=== PATIENT | male | born 1980 | race Caucasian/White ===

== ENCOUNTER 2018-06-24 09:46 | Outpatient (REF) | payer BC, SELFPAY ==
[2018-06-24 22:10] LABS: Anion Gap 8.2 mmol/L (3-11); BUN 16 mg/dL (7-18); CO2 31.8 mmol/L (21.0-32.0); CREATININE 1.25 mg/dL (0.70-1.30); Calcium 9.6 mg/dL (8.5-10.1); Chloride 100 mmol/L (98-107); Cholesterol 250 mg/dL (50-200); Glucose 97 mg/dL (70-100); HDL Cholesterol 34 mg/dL (40-60); LDL CHOLESTEROL 181 mg/dL (<100); Potassium 3.3 mmol/L (3.5-5.1); Sodium 140 mmol/L (136-145); Triglyceride 207 mg/dL (30-150)
== END 2018-06-24 10:06 ==
LOC: NCHCN 09:46
PROVIDERS: PCP Internal Medicine; Visit Provider Internal Medicine
DX: Z00.00 Encounter for general adult medical examination without abnormal findings (principal); I10 Essential (primary) hypertension
CPT/HCPCS: 80048; 80061; 83721

== ENCOUNTER 2019-04-22 08:38 | Outpatient (REF) | payer BC, SELFPAY ==
[2019-04-22 21:10] LABS: Anion Gap 7.4 mmol/L (3-11); BUN 16 mg/dL (7-18); CO2 32.6 mmol/L (21.0-32.0); CREATININE 1.22 mg/dL (0.70-1.30); Calcium 9.3 mg/dL (8.5-10.1); Calculated LDL 151 mg/dL; Chloride 101 mmol/L (98-107); Cholesterol 225 mg/dL (<200); Glucose 102 mg/dL (74-106); HDL Cholesterol 31 mg/dL (40-60); Potassium 3.2 mmol/L (3.5-5.1); Sodium 141 mmol/L (136-145); Triglyceride 219 mg/dL (<150)
== END 2019-04-22 08:58 ==
LOC: NCHCN 08:38
PROVIDERS: PCP Internal Medicine; Visit Provider Internal Medicine
DX: I10 Essential (primary) hypertension (principal); Z13.220 Encounter for screening for lipoid disorders
CPT/HCPCS: 80048; 80061

== ENCOUNTER 2019-05-03 11:36 | Outpatient (REF) | payer BC, SELFPAY ==
[2019-05-03 21:21] LABS: Potassium 3.5 mmol/L (3.5-5.1)
== END 2019-05-03 11:56 ==
LOC: NCHCN 11:36
PROVIDERS: PCP Internal Medicine; Visit Provider Internal Medicine
DX: E87.6 Hypokalemia (principal)
CPT/HCPCS: 84132

== ENCOUNTER 2020-07-30 11:43 | Outpatient (REF) | payer BC, SELFPAY ==
[2020-07-30 21:52] LABS: ALT 102 U/L (16-63); AST 44 U/L (15-37); Albumin 4.3 g/dL (3.4-5.0); Alkaline Phosphatase 62 U/L (46-116); Anion Gap 6.4 mmol/L (3-11); BUN 14 mg/dL (7-18); Bilirubin, Total 0.6 mg/dL (0.2-1.0); CO2 32.6 mmol/L (21.0-32.0); CREATININE 1.3 mg/dL (0.70-1.30); Calcium 9.1 mg/dL (8.5-10.1); Chloride 105 mmol/L (98-107); Glucose 93 mg/dL (74-106); Potassium 3.5 mmol/L (3.5-5.1); Sodium 144 mmol/L (136-145); Total Protein 7.5 g/dL (6.4-8.2)
[2020-07-30 21:55] LABS: Hemoglobin A1C 5.7 % (<5.7)
== END 2020-07-30 11:44 | disposition home or self-care (01) ==
LOC: NCHCN 11:43
PROVIDERS: PCP Internal Medicine; Visit Provider Internal Medicine
DX: R73.01 Impaired fasting glucose (principal); I10 Essential (primary) hypertension; E78.5 Hyperlipidemia, unspecified
CPT/HCPCS: 80053; 83036

== ENCOUNTER 2021-01-31 07:46 | Outpatient (REF) | payer BC, SELFPAY ==
[2021-01-30 21:48] LABS: ALT 48 U/L (16-63); AST 22 U/L (15-37); Albumin 4.4 g/dL (3.4-5.0); Alkaline Phosphatase 66 U/L (46-116); Bilirubin, Direct 0.1 mg/dL (0.0-0.2); Bilirubin, Total 0.6 mg/dL (0.2-1.0); Total Protein 7.5 g/dL (6.4-8.2)
[2021-02-01 11:12] LABS: HIV-1/2 Ag & Ab Screen Negative (Negative)
[2021-02-01 11:23] LABS: Hepatitis C Ab w Rflx HCV PCR Negative (Negative)
== END 2021-01-31 07:47 | disposition home or self-care (01) ==
LOC: NCHCN 07:46
PROVIDERS: PCP Internal Medicine; Visit Provider Internal Medicine
DX: Z00.00 Encounter for general adult medical examination without abnormal findings (principal); E78.5 Hyperlipidemia, unspecified; Z11.59 Encounter for screening for other viral diseases; R79.89 Other specified abnormal findings of blood chemistry
CPT/HCPCS: 80076; 86803; 87389

== ENCOUNTER 2022-02-24 07:51 | Outpatient (REF) | payer BC, SELFPAY ==
[2022-02-24 15:15] LABS: Hemoglobin A1C 5.3 % (<5.7)
[2022-02-24 15:35] LABS: ALT 48 U/L (16-63); AST 25 U/L (15-37); Albumin 4.6 g/dL (3.4-5.0); Alkaline Phosphatase 59 U/L (46-116); Anion Gap 7.3 mmol/L (3-11); BUN 11 mg/dL (7-18); Bilirubin, Direct 0.1 mg/dL (0.0-0.2); Bilirubin, Total 0.9 mg/dL (0.2-1.0); CO2 32.7 mmol/L (21.0-32.0); CREATININE 1.1 mg/dL (0.70-1.30); Calcium 9.5 mg/dL (8.5-10.1); Chloride 100 mmol/L (98-107); Estimated GFR 85.95 (mL/min/1.73m2); Glucose 92 mg/dL (74-106); Potassium 3.1 mmol/L (3.5-5.1); Sodium 140 mmol/L (136-145); Total Protein 7.8 g/dL (6.4-8.2)
[2022-02-24 16:01] LABS: Calculated LDL 178 mg/dL (<100); Cholesterol 252 mg/dL (<200); HDL Cholesterol 41 mg/dL (40-60); Triglyceride 169 mg/dL (<150)
== END 2022-02-24 07:52 | disposition home or self-care (01) ==
LOC: NCHCN 07:51
PROVIDERS: PCP Internal Medicine; Visit Provider Internal Medicine
DX: Z00.00 Encounter for general adult medical examination without abnormal findings (principal); E78.5 Hyperlipidemia, unspecified; R73.01 Impaired fasting glucose; E66.3 Overweight; R73.03 Prediabetes; R79.89 Other specified abnormal findings of blood chemistry; I10 Essential (primary) hypertension; N20.0 Calculus of kidney
CPT/HCPCS: 80053; 80061; 80076; 83036

== ENCOUNTER 2022-03-19 17:17 | Outpatient (REF) | payer BC, SELFPAY ==
[2022-03-19 16:28] LABS: Anion Gap 5.5 mmol/L (3-11); BUN 14 mg/dL (7-18); CO2 32.5 mmol/L (21.0-32.0); CREATININE 1.1 mg/dL (0.70-1.30); Calcium 9.1 mg/dL (8.5-10.1); Chloride 103 mmol/L (98-107); Estimated GFR 85.95 (mL/min/1.73m2); Glucose 163 mg/dL (74-106); Potassium 3.2 mmol/L (3.5-5.1); Sodium 141 mmol/L (136-145)
== END 2022-03-19 17:18 | disposition home or self-care (01) ==
LOC: NCHCN 17:17
PROVIDERS: PCP Internal Medicine; Visit Provider Nurse Practitioner Family
DX: I10 Essential (primary) hypertension (principal)
CPT/HCPCS: 80048

== ENCOUNTER 2022-04-16 18:11 | Outpatient (REF) | payer BC, SELFPAY ==
[2022-04-16 14:40] LABS: Anion Gap 4.4 mmol/L (3-11); BUN 12 mg/dL (7-18); CO2 29.6 mmol/L (21.0-32.0); Chloride 105 mmol/L (98-107); Estimated GFR 96.37 (mL/min/1.73m2); Glucose 76 mg/dL (74-106); Sodium 139 mmol/L (136-145)
== END 2022-04-16 18:12 | disposition home or self-care (01) ==
LOC: NCHCN 18:11
PROVIDERS: PCP Internal Medicine; Visit Provider Internal Medicine
DX: I10 Essential (primary) hypertension (principal)
CPT/HCPCS: 80048

== ENCOUNTER 2022-11-26 15:09 | Outpatient (REF) | payer BC, SELFPAY ==
[2022-11-26 21:31] LABS: BUN 11 mg/dL (7-18); Calcium 9.1 mg/dL (8.5-10.1); Calculated LDL 161 mg/dL (<100); Chloride 104 mmol/L (98-107); Cholesterol 239 mg/dL (<200); Estimated GFR 95.77 (mL/min/1.73m2); Glucose 82 mg/dL (74-106); HDL Cholesterol 37 mg/dL (40-60); Potassium 3.6 mmol/L (3.5-5.1); Sodium 142 mmol/L (136-145); Triglyceride 208 mg/dL (<150)
== END 2022-11-26 15:10 | disposition home or self-care (01) ==
LOC: NCHCN 15:09
PROVIDERS: PCP Internal Medicine; Visit Provider Internal Medicine
DX: I10 Essential (primary) hypertension (principal)
CPT/HCPCS: 80048; 80061

== ENCOUNTER 2023-08-05 15:21 | Outpatient (REF) | payer BC, SELFPAY ==
[2023-08-05 15:29] LABS: ALT 39 U/L (16-63); AST 23 U/L (15-37); Albumin 4.6 g/dL (3.4-5.0); Alkaline Phosphatase 73 U/L (46-116); Anion Gap 11.6 mmol/L (3-11); BUN 12 mg/dL (7-18); Bilirubin, Total 0.8 mg/dL (0.2-1.0); CO2 28.4 mmol/L (21.0-32.0); Calcium 9.5 mg/dL (8.5-10.1); Chloride 101 mmol/L (98-107); Estimated GFR 95.18 (mL/min/1.73m2); Glucose 92 mg/dL (74-106); Potassium 3.2 mmol/L (3.5-5.1); Sodium 141 mmol/L (136-145); Total Protein 7.7 g/dL (6.4-8.2)
[2023-08-05 15:33] LABS: Hemoglobin A1C 5.1 % (<5.7)
== END 2023-08-05 15:22 | disposition home or self-care (01) ==
LOC: NCHCN 15:21
PROVIDERS: PCP Internal Medicine; Visit Provider Nurse Practitioner Family
DX: I10 Essential (primary) hypertension (principal); R73.03 Prediabetes
CPT/HCPCS: 80053; 83036

== ENCOUNTER 2023-09-08 14:39 | Outpatient (REF) | payer BC, SELFPAY ==
[2023-09-08 21:30] LABS: Anion Gap 8.3 mmol/L (3-11); BUN 17 mg/dL (7-18); CO2 28.7 mmol/L (21.0-32.0); CREATININE 1.2 mg/dL (0.70-1.30); Calcium 9.1 mg/dL (8.5-10.1); Chloride 105 mmol/L (98-107); Estimated GFR 76.48 (mL/min/1.73m2); Glucose 178 mg/dL (74-106); Potassium 3.2 mmol/L (3.5-5.1); Sodium 142 mmol/L (136-145)
== END 2023-09-08 14:40 | disposition home or self-care (01) ==
LOC: NCHCN 14:39
PROVIDERS: PCP Internal Medicine; Visit Provider Nurse Practitioner Family
DX: I10 Essential (primary) hypertension (principal)
CPT/HCPCS: 80048

== ENCOUNTER 2024-04-11 09:13 | Outpatient (REF) | payer BC, SELFPAY ==
[2024-04-11 15:23] LABS: Anion Gap 6.7 mmol/L (3-11); BUN 11 mg/dL (7-18); CO2 33.3 mmol/L (21.0-32.0); CREATININE 1.2 mg/dL (0.70-1.30); Calcium 9.5 mg/dL (8.5-10.1); Chloride 104 mmol/L (98-107); Estimated GFR 76.48 (mL/min/1.73m2); Glucose 100 mg/dL (74-106); Potassium 3.6 mmol/L (3.5-5.1); Sodium 144 mmol/L (136-145)
== END 2024-04-11 09:14 | disposition home or self-care (01) ==
LOC: NCHCN 09:13
PROVIDERS: PCP Internal Medicine; Visit Provider Internal Medicine
DX: I10 Essential (primary) hypertension (principal)
CPT/HCPCS: 80048

== ENCOUNTER 2025-05-08 13:12 | Outpatient (REF) | payer BC, SELFPAY ==
[2025-05-08 15:25] LABS: Hemoglobin A1C 5.1 % (<5.7)
[2025-05-08 15:27] LABS: Anion Gap 7.7 mmol/L (3-11); BUN 11 mg/dL (9-23); CO2 33.3 mmol/L (20.0-31.0); Calcium 9.1 mg/dL (8.3-10.6); Chloride 104 mmol/L (98-107); Cholesterol 220 mg/dL (<200); Glucose 89 mg/dL (74-106); HDL Cholesterol 36 mg/dL (>40); Potassium 3.2 mmol/L (3.5-5.1); Sodium 145 mmol/L (136-145)
[2025-05-08 22:38] LABS: Microalb ug/mg Crea 2.3 ug/mg Cr
== END 2025-05-08 13:13 | disposition home or self-care (01) ==
LOC: NCHCN 13:12
PROVIDERS: PCP Internal Medicine; Visit Provider Internal Medicine
DX: E78.5 Hyperlipidemia, unspecified (principal); I10 Essential (primary) hypertension; R73.03 Prediabetes
CPT/HCPCS: 80048; 80061; 82043; 82570; 83036